=== PATIENT | male | born 1960 | race Caucasian/White ===

== ENCOUNTER 2018-01-01 06:57 | Day surgery (SDC) | payer BC ==
[~2018-01-01] VITALS: Ht 182.9 cm; Wt 76.2 kg
[~2018-01-01 06:57] MED LIST: FOLTX TABLET1 EAC1 PO; METOPROLOL SUC100 MG PO; VITAMIN D32000 UNI1 PO
--- NOTE | 2018-01-01 09:37 | NUR ---
UP TO BR PRIOR TO GOING TO O R
--- NOTE | 2018-01-01 10:04 | NUR ---
PT ALERT, ORIENTED AND SUPPORTED BY HIS SISTERS. FRIENDLY PERSON, THAT SEEMED PREPARED, HAD FEW QUESTIONS-ALLOWED ME TO PRAY FOR HIM. WILL CONTINUE TO FOLLOW NEEDED
[2018-01-01] MEDS ORDERED: MAPAP325 MG PO (10:29)
[2018-01-01] MEDS ORDERED: IBUPROFEN600 MG PO (10:29)
--- NOTE | 2018-01-01 10:29 | NUR ---
01/01/18 Nevin9 Aleida Ray 1014 RESP EVEN AND UNLABORED, PT DROWSY AND TALKING. DENIENS NAUSEA AND PAIN. 1022 CONTOUR STITCHER AT BEDSIDE. 1023 O2 REMOVED. O2 SAT 100%
[2018-01-01] MEDS ORDERED: NORCO 5-325 TA1 EACH PO (10:31)
--- NOTE | 2018-01-02 07:09 | EKG ---
[facility] [address] [facility] [place] [address] Signed Sinus rhythm with occasional premature ventricular complexes Possible Left atrial enlargement Nonspecific T wave abnormality Prolonged QT Abnormal ECG No previous ECGs available Confirmed by KEVIN CM MD ([id number]) on 01/02/2018 7:09:33 AM Electronically Signed By: KEVIN CM MD 01/02/18 0709 PATIENT NAME: CARTER VASQUEZ Electrocardiogram DATE OF : 64 PHYSICIAN: KEVIN CM MD REPORT #: [id number] REPORT IS CONFIDENTIAL AND NOT TO BE RELEASED WITHOUT AUTHORIZATION
--- NOTE | 2018-01-02 13:35 | OR ---
[facility] [address] [place], [place] [address] Signed DATE OF OPERATION: 01/01/2018 SURGEON: Chad Talbert MD PREOPERATIVE DIAGNOSES: 1. 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 2. 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 POSTOPERATIVE DIAGNOSES: 1. 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 2. 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 PROCEDURE: Right carpal tunnel release. ANESTHESIA: Maxton block, Cynthia Moreno CRNA and local 5 mL of 0.25% Marcaine. INDICATION: This 57-year-old white man is a patient of Dr. Juni Cantrell and evaluated by Dr. Chad Engel in [place] for neuropathy. He has been determined to have hereditary neuropathy with liability to pressure palsy. Also known as HNPP. 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 His symptoms include numbness of his hands, both left and right, as well as increased sensitivity to cold, the right greater than left. 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 He is admitted to undergo right carpal tunnel release in hopes of diminishing chance of progressive neuropathy at the wrist. He and his family understand the risks of bleeding, infection, nerve injury, failure to improve the situation, and other unforeseen complications and wished to proceed. FINDINGS: Transverse carpal ligament was easily identified and transected in usual way proximally to the distal wrist crease and distally onto the palmar fascia. The underlying median nerve appeared chronically inflamed, but without sign of hourglass deformity or anything of that sort. There were no problems with operation. Tourniquet time was 22 minutes total. DESCRIPTION OF PROCEDURE: The patient was brought to the operating room and given intravenous sedation as well as a Margie block anesthetic on the right side. The hand was prepared with chlorhexidine Electronically Signed By: CHAD TALBERT MD 01/02/18 1335 PATIENT NAME: CARTER VASQUEZ OPERATIVE REPORT DATE OF : 64 PHYSICIAN: CHAD TALBERT MD REPORT #: [id number] REPORT IS CONFIDENTIAL AND NOT TO BE RELEASED WITHOUT AUTHORIZATION [facility] [address] [place], [place] [address] Signed solution and draped sterilely. A finger retractor and a rolled blue towel behind the wrist was used to expose well the palmar aspect. Between the thenar and hypothenar creases, a small incision was made. Dissection carried through the palmaris longus identifying the transverse carpal ligament, which was then transected with all due care using a 15-blade. A hemostat was placed beneath the ligament protecting the underlying nerve and the transection was carried onto the palmar fascia. Hemostat was replaced proximally and the transverse carpal ligament transected proximally. Tenotomy scissors was used to transect it more fully to the distal transverse wrist crease. Complete release was accomplished. Minimal cautery was used in the subcutaneous area, but there was no real bleeding. A 5 mL of 0.25% Marcaine was injected locally. The skin was then reapproximated with interrupted 3-0 nylon suture. Xeroform dressing was applied as well as some folded gauze and a Flexicon wrap and ultimately a cock-up wrist splint and a 4-inch Og wrap. Pressure was applied to the operative site and the tourniquet was taken down. The tourniquet time in total was 22 minutes. Pressure was applied to the operative site until rubor returned to the digits and then released. He was then transferred to recovery room in good condition having suffered no complication. BLOOD LOSS: Nil. MD CHANCE Griffith/LIZAL /[id number] cc: MD Chad Fowler MD Electronically Signed By: CHAD TALBERT MD 01/02/18 1335 PATIENT NAME: PEDROCARTER ALEXANDR OPERATIVE REPORT DATE OF : 64 PHYSICIAN: CHAD TALBERT MD REPORT #: [id number] REPORT IS CONFIDENTIAL AND NOT TO BE RELEASED WITHOUT AUTHORIZATION
== END 2018-01-01 11:15 | disposition home or self-care (01) ==
LOC: OPS 06:57 → DS 06:57 → OPS 08:45
PROVIDERS: Surgery
PROC: 01N50ZZ Release Median Nerve, Open Approach (ICD-10-PCS; principal; 2018-01-01 08:45)
DX: G56.03 Carpal tunnel syndrome, bilateral upper limbs (principal); I10 Essential (primary) hypertension; G58.8 Other specified mononeuropathies; Z90.89 Acquired absence of other organs; Z90.49 Acquired absence of other specified parts of digestive tract; Z79.899 Other long term (current) drug therapy
CPT/HCPCS: 01810; 93005; 93010; J0690; J2250; J2704; J3010; J7120

== ENCOUNTER 2018-11-19 23:01 | Observation (INO) | payer BC ==
[~2018-11-19] VITALS: Ht 182.9 cm; Wt 75.2 kg
[~2018-11-19 23:01] MED LIST changes: +IBUPROFEN600 MG PO; +MAPAP325 MG PO; -METOPROLOL SUC100 MG PO; +METOPROLOL SUCC50 MG PO; +NORCO 5-325 TA1 EACH PO; +OXYCODON-ACETA1 EAC2 PO
--- NOTE | 2018-11-20 02:15 | NUR ---
PT ARRIVED FROM ED VIA WHEELCHAIR. HE IS GETTING ORIENTED TO THE ROOM BY LADIES UNDERWEAR OPERATOR FLORA.
--- NOTE | 2018-11-20 03:19 | NUR ---
ASSESSMENT COMPLETE AT THIS TIME. PT DENIES PAIN, CHEST PAIN, DIZZINESS OR NAUSEA. HE IS ON TELE #5 WITH IRREGULAR HR. WARM BLANKETS AND WATER PROVIDED. REMINDED PT TO CALL IF HE WANTS TO GET OUT OF BED. HE REPORTS HAVING 4 VODKA DRINKS PER DAY BUT STATES HE HAS GONE SEVERAL DAYS AT A TIME WITHOUT DRINKING AND NOT HAVING ANY PROBLEM WITH IT. ADVISED HIM TO LET US KNOW IF HE FEELS SHAKY, SWEATY, OR AGGITATED. CALL LIGHT IS WITHIN REACH.
--- NOTE | 2018-11-20 04:21 | NUR ---
PT IS RESTING WITH EYES CLOSED, RESPIRATIONS ARE EVEN AND NONLABORED. CALL LIGHT IS WITHIN REACH.
--- NOTE | 2018-11-20 05:27 | NUR ---
PT HAS SLEPT SINCE ASSESSMENT AFTER ARRIVING TO THE FLOOR. HE DENIES PAIN, NAUSEA, AND DIZZINES. HE IS A SBA TO THE RESTROOM BUT USES THE URINAL AT BEDSIDE. HE IS ON TELE #5 AND HR IS IRREGULAR WITH RATES BETWEEN 59-UPPER 60'S. URINE OUTPUT IS QS. MONITOR FOR ETOH WITHDRAWAL, ALTHOUGH PT DENIES THE NEED TO.
--- NOTE | 2018-11-20 05:50 | NUR ---
PT DENIES PAIN AT THIS TIME AND DENIES FURTHER NEEDS AT THIS TIME. CALL LIGHT IS CLOSE.
--- NOTE | 2018-11-20 06:19 | NUR ---
VITALS AND I&OS DONE AND CHARTED. BEDSIDE TABLE AND CALL LIGHT IN REACH. FRESH ICE WATER GIVEN. PT NEEDS NOTHING MORE AT THIS TIME.
--- NOTE | 2018-11-20 06:50 | NUR ---
RECHECKED PT'S BP, IT REMAINS IN THE 90'S SYSTOLIC IT WAS 98/38. WILL SEND MSG TO DR OLIVEIRA.
--- NOTE | 2018-11-20 07:23 | NUR ---
RECEIVED REPORT FROM STOKER INSTALLATION MECHANIC RN. PT IN BED WITH AT BEDSIDE. REPORTS PAIN AT 5/10 IN ABDOMEN. REPORTS SOME NAUSEA. MOTRIN TO BE GIVEN. BREAKFAST ORDERED. CALL LIGHT IN REACH. DENEIS FURTHER NEEDS.
--- NOTE | 2018-11-20 09:00 | NUR ---
RECEIVED CRITICAL VALUE FOR TROPONIN T FO 0.038, DR. OLIVEIRA NOTIFIED IN PERSON.
--- NOTE | 2018-11-20 09:04 | NUR ---
PATIENT RESTING IN BED. IN ROOM. VITAL SIGNS AND I&O DONE. CALL LIGHT WITHIN REACH. ICE WATER GIVEN. NO OTHER NEEDS AT THIS TIME
--- NOTE | 2018-11-20 09:12 | NUR ---
ASSESSEMNT DONE. PT DENIES HEADACHE/SOB/CHEST PAIN/DIZZINESS. ORTHOSTATICS TAKEN AND REPORTED TO DR OLIVEIRA. LR AT 125 STARTED. LUNGS CLEAR, NO EDEMA. PT REPORTS CHRONIC N/T IN HANDS AND FEET. HANDS CYNOTIC. CAP REFILL 3. RADIAL PULSES +1.HEART SOUNDS IRREGULAR. TELE #[address] HR 75. STANDING WEIGHT 166.5 LBS. RIGHT HAND SLIGHTLY WEAKER THEN LEFT.
--- NOTE | 2018-11-20 12:00 | NUR ---
IV SITE PUFFY, COOL, AND PAINFUL. IV SITE REPLACED.
--- NOTE | 2018-11-20 13:26 | NUR ---
PATIENT RESTING IN BED. VITAL SIGNS AND I&O DONE/ CALL LIGHT WITHIN REACH. ICE WATER GIVEN. NO OTHER NEEDS AT THIS TIME
--- NOTE | 2018-11-20 13:30 | NUR ---
PATIENT SLEEPING. WILL RETURN LATER.
--- NOTE | 2018-11-20 14:19 | NUR ---
MED REC COMPLETE WITH [facility] REFILL HISTORY AND [facility] ELECTRONIC UPDATE.
--- NOTE | 2018-11-20 15:23 | NUR ---
PT IN BED AAO. ASSESSMENT SAME PREVIOUS. TELE # [address] IRREGULAR RATE. HER 70. PT DENEIS SOB, CHEST OR HEAD PAIN. CALL LIGHT IN REACH. DENIES NEEDS AT THIS TIME
--- NOTE | 2018-11-20 16:00 | NUR ---
PHYSICAL THERAPY IN TO DO EVALUATION. AMBULATING IN HALLS HR IS STABLE AROUND 70-80'S. BACK TO ROOM. DENEIS SOB, PAIN. CALL LIGHT IN REACH.
--- NOTE | 2018-11-20 16:35 | NUR ---
SPOKE WITH PATIENT IN ROOM. PATIENT JUST RETURNED FROM PHYSICAL THERAPY. PATIENT PLANS TO RETURN HOME TO [place] WITH . PATIENT DOES NOT USE ANY DME. STILL EMPLOYED. PATIENT DENIES NEEDS TO SAFE DISCHARGE HOME. DISCUSSED TO MAKE SURE TO UNDERSTAND DISCHARGE INSTRUCTIONS ESPECIALLY MEDICATIONS, SIDE EFFECTS AND WHO AND WHEN TO FOLLOW UP WITH. PATIENT STATES UNDERSTANDING.
--- NOTE | 2018-11-20 17:49 | NUR ---
PATIENT RESTING IN BED. IN ROOM. VITAL SIGNS AND I&O DONE. ICE WATER GIVEN. CALL LIGHT WITHIN REACH. NO OTHER NEEDS AT THIS TIME
--- NOTE | 2018-11-20 18:00 | NUR ---
PT SITTING UP IN BED AAO. AT BEDSIDE. DENIES ANY NEW SYMPTOMS, CALL LIGHT IN REACH. TELE #[address] WITH IRREG HEART RHYTHM. HR 82.
--- NOTE | 2018-11-20 19:30 | NUR ---
BEDSIDE REPORT RECEIVED FROM OFFGOING RN. PT SITTING IN BED, IN CHAIR AT BEDSIDE. PT DENIES NEEDS AT THIS TIME. CALL LIGHT WITHIN REACH.
--- NOTE | 2018-11-20 22:12 | EKG ---
[facility] [address] [facility] [place] [address] Signed Atrial fibrillation with slow ventricular response with premature ventricular or aberrantly conducted complexes Nonspecific ST and T wave abnormality Abnormal ECG When compared with ECG of 01-JAN-2018 10:24, Atrial fibrillation has replaced Sinus rhythm Nonspecific T wave abnormality, worse in Inferior leads Confirmed by HORACIO OLIVEIRA DO ([id number]) on 11/20/2018 10:11:52 PM Electronically Signed By: HORACIO OLIVEIRA DO 11/20/18 2212 PATIENT NAME: CARTER VASQUEZ Electrocardiogram DATE OF : 64 PHYSICIAN: HORACIO OLIVEIRA DO REPORT #: [id number] REPORT IS CONFIDENTIAL AND NOT TO BE RELEASED WITHOUT AUTHORIZATION
--- NOTE | 2018-11-20 23:03 | NUR ---
PT ASSESSMENT COMPLETE. PT RESTING IN BED WITH EYES CLOSED, WAKES EASILY TO VOICE. PT DENIES PAIN, NAUSEA, OR SOB. TELE #5, HR 69, IRREGULAR. PT HANDS ARE DUSKY, PT STATES THIS IS CHRONIC, WELL CHRONIC NEUROPATHY TO BILATERAL HANDS AND FEET. PT UP TO USE THE BATHROOM INDEPENDENTLY, PT TOLERATES WELL. PT REQUESTS ICE WATER, PROVIDED. PT DENIES FURTHER NEEDS. CALL LIGHT WITHIN REACH.
--- NOTE | 2018-11-21 01:04 | NUR ---
PT RESTING IN BED WITH EYES CLOSED. RESPIRATIONS EVEN AND UNLABORED, SNORING AUDIBLY FROM DOORWAY. PT APPEARS TO BE SLEEPING. PT DOES NOT WAKE WHILE SPRAY APPLICATOR IN ROOM. CALL LIGHT WITHIN REACH. SIG OTHER SLEEPING ON COUCH IN ROOM.
--- NOTE | 2018-11-21 03:30 | NUR ---
PT RESTING IN BED WITH EYES CLOSED. RESPIRATIONS ARE EVEN AND UNLABORED. PT APPEARS TO BE SLEEPING. PT DOES NOT WAKE WHILE FACE BURLER IN DOORWAY. CALL LIGHT WITHIN REACH.
--- NOTE | 2018-11-21 05:45 | NUR ---
PT ASSESSMENT COMPLETE. PT STANDING BEHIND CHAIR WATCHING HIS 'S TABLET. PT DENIES PAIN, NAUSEA, SOB, DIZZINESS, OR LIGHTHEADEDNESS. PT REPORTS THAT HE WOULD LIKE TO SHOWER THIS AM. PT PROVIDED WITH TOWELS AND TOILETRIES. TELE # 5, IRREGULAR, HR IN 60'S. TELE REMOVED FOR PT'S SHOWER. IV COVERED WITH BAG AND TAPE. PT DENIES FURTHER NEEDS AT THIS TIME. CALL LIGHT WITHIN REACH.
--- NOTE | 2018-11-21 06:44 | NUR ---
PT RESTED WELL THIS SHIFT. NO PAIN, NAUSEA, OR SOB. NO EPISODES OF DIZZINESS OR LIGHTHEADEDNESS. TELE # 5 HR IRREGULAR, IN 60'S. INDEPENDENT IN ROOM. WALKING HALLS X 2 THIS HIFT. UP QS. IV SL.
--- NOTE | 2018-11-21 08:07 | NUR ---
REPORT RECIEVED FROM SOFTWARE INTEGRATOR NURSE. PT IN BED AAO WITH AT BEDSIDE. DENIES PAIN OR NEEDS. TELE [address] IRREGULAR RATE. HR 60 BPM. CALL LIGHT IN REACH.
--- NOTE | 2018-11-21 08:27 | NUR ---
PATIENT SITTING ON SIDE OF BED, FAMILY IN ROOM. CALL LIGHT IN REACH. NO FURTHER NEEDS AT THIS TIME.
--- NOTE | 2018-11-21 08:34 | NUR ---
took patients weight per nurse order recorded results in chart
[2018-11-21] MEDS ORDERED: ASPIRIN325 MG PO (09:47)
[2018-11-21] MEDS ORDERED: THERA-M TABLET1 EA PO (09:56)
[2018-11-21] MEDS ORDERED: VITAMIN B-1100 MG PO (09:56)
--- NOTE | 2018-11-21 10:05 | NUR ---
PATIENT UP WALKING AROUND, INDEPENDENT. FRESH WATER GIVEN. LINENS CHAGNED. CALL LIGHT IN REACH. NO FURTHER NEEDS AT THIS TIME.
== END 2018-11-21 11:25 | disposition home or self-care (01) ==
LOC: ED 23:01 → MS 23:02
PROVIDERS: ADMIT Student in an Organized Health Care Education/Training Program
DX: I48.91 Unspecified atrial fibrillation (principal); R77.8 Other specified abnormalities of plasma proteins; I10 Essential (primary) hypertension; E87.1 Hypo-osmolality and hyponatremia; Z79.899 Other long term (current) drug therapy
CPT/HCPCS: 36415; 80048; 80053; 82533; 82550; 83735; 84300; 84443; 84484; 85025; 85610; 85730; 93005; 93010; 96360; 96361; 97162; 97166; 99285-25; G0378; J7030; J7120